=== PATIENT | female | born 1985 | race Caucasian/White ===

== ENCOUNTER 2023-09-17 03:25 | Day surgery (SDC) | payer OTHER, SELFPAY ==
--- NOTE | 2023-09-11 15:16 | PC.NURSE ---
Report to the Outpatient Waiting Room, entrance under the green pavilion located off [facility], at time _0745__ on date _09/17/23___. Planned Procedure Time: _0945___. Time changes happen often and if your time is changed the preop area will call you the afternoon before. - You and your visitor will be asked to self-screen and do not enter if you have any COVID symptoms. - A mask is optional within the hospital at this time. Patients may have clear liquids (water, carbonated beverages, clear teas, apple juice) until 3 hours prior to surgery with a maximum of 20 ounces. - No food from midnight until time of surgery - Infants may have breast milk until 4 hours before surgery, formula 6 hours prior to surgery. - Children will be allowed to drink immediately following surgery. If applicable, please bring a bottle or sippy cup to assist with drinking. Juice, water, soda, and popsicles are readily available. For infants on formula, please bring formula the day of surgery. Pacifiers are allowed. Take the following medications with a SIP of water the morning of surgery: _None DO NOT STOP ANY OF YOUR OTHER PRESCRIPTION MEDICATIONS PRIOR TO SURGERY ?EXCEPT THE FOLLOWING Medications to discontinue per physician Date to take last dose Please no make-up, nail martiniquais, hairspray, perfume, deodorant, or body powder the day of surgery. No jewelry (including any body piercings) or valuables the day of surgery, leave them at home. Please take a shower or bath the night before, or the morning of, surgery with an antibacterial soap. Wear comfortable, loose fitting clothing. Children are encouraged to wear pajamas. - Jewelry must be removed prior to entering the operating room. Rings and piercings that are not removed may be cut off. - The hospital will not accept responsibility for valuables. - Please leave all valuables, including medications, at home the day of surgery. If you are going home after surgery, a licensed fence post driver must drive you home. - NO public transportation without another adult if you receive anesthesia. - We recommend that an adult stay with you for 24 hours following discharge. - We also recommend that you do not drive, make important decision, drink alcoholic beverages, or take any drugs that were not prescribed by your health care provider for at least 24 hours after your discharge time. For Pediatric surgeries, we recommend two adults accompany the child home. Follow any additional instructions given to you from your surgeon. If you or anyone in your household have experienced Covid symptoms in the past week, please notify your surgeon or the nurse liaison at the phone number below for possible testing. Telephone instructions given to _patient__and asked if any additional questions and then verbalized understanding. Patient advised to call surgeon office or pre surgery nurse liaison [phone] if any additional questions.
[2023-09-11 15:20] VITALS: BMI 22.5
--- NOTE | 2023-09-17 07:26 | WPDHPUPDATE1 ---
History and Physical Update Update Date/Time: 09/17/23 07:26 History and Physical has been reviewed, including an updated exam of the patient. There are NO changes in the patient's condition. Risks, benefits, and alternatives have been discussed and questions answered. Patient agrees to proceed with procedure.
--- NOTE | 2023-09-17 07:26 | PM.HPGS ---
History of Present Illness History of Present Illness Consent: Risks, benefits, and alternatives have been discussed and questions answered. Patient agrees to proceed with procedure. Chief complaint: Menorrhagia Narrative: Salomón Marcos is a 38 year old female with the increasing history of for the past 2 years of heavy cycles and cramping. Pelvic ultrasound shows fibroids. It was recommended to undergo D&C hysteroscopy for further evaluation. Risks of infection, bleeding, perforation, and fluid balance are reviewed. The possibility two procedures due to large fibroids is discussed. Patient voices understanding and agrees to proceed. Review of Systems Review of Systems: not repeated day of surgery; patient states no changes in status PMF Past Medical History Medical History (Updated 09/17/23 @ 07:29 by Katherine Landry MD) Alcoholism sober since 2014 Anxiety Drug addiction clean since 2014 Interstitial cystitis Social History Social History Smoking status: Current every day smoker Tobacco type: e-cigarettes/vaping Smokeless tobacco user: other Additional smoking assessment comments: for 5 years Alcohol intake: never Substance use: former Substance use type: marijuana, crack/cocaine, amphetamines and hallucinogens Other substance usage details: daily for 10 years Last use: 2014 Living arrangements: alone Spiritual care concerns: No Meds Home Medications and Allergies Home Medications Medication Instructions Recorded Confirmed Type sertraline 50 mg tablet 75 mg PO HS 09/11/23 09/11/23 History spironolactone 100 mg tablet 100 mg PO HS 09/11/23 09/11/23 History Allergies Allergy/AdvReac Type Severity Reaction Status Date / Time No Known Allergies Allergy Unverified 09/11/23 15:00 Exam Const: General: healthy appearing and alert Orientation/consciousness: patient oriented x3 Resp: Effort & Inspection: normal respiratory effort Auscultation: clear to auscultation bilaterally Cardio: Rate: regular rate Rhythm: regular rhythm GI: GI Palp: Yes Soft to palpation, No Tenderness to palpation present (GI) and No Palpable mass present : Bimanual exam- vagina & uterus: enlarged ( 10.6cm with several fibroids measuring between 1cm and 3.5cm) Neuro: General: patient oriented x3 Assessment and Plan Assessment and plan (1) Menorrhagia: Code(s): N92.0 - Excessive and frequent menstruation with regular cycle Status: Acute Assessment and Plan: plan to proceed with D&C hysteroscopy
[2023-09-17] MEDS: LACTATED RINGERS 1,000 ML 30 ML IV CONT (08:00)
[2023-09-17 08:15] VITALS: BP 102/66; PULSE 92; RESP 14; TEMP 36.3; O2SAT 100
--- NOTE | 2023-09-17 08:18 | P.PNAN_ITS ---
Anes - Initial Pre Proc Eval Procedure: Operation Date: 09/17/23 09:45 Proposed Procedures p Hysteroscopy Dilation and Curettage - Katherine Landry MD Date/Time: 09/17/23 08:18 Surgeon: Katherine Landry MD Pre Op Diagnosis: Menorrhagia Patient Data Age: 38 Gender: F Height: 1.68 m Weight: 63.3 kg Allergies Allergy/AdvReac Type Severity Reaction Status Date / Time No Known Allergies Allergy Unverified 09/11/23 15:00 Home Medications Medication Instructions Recorded Confirmed Type sertraline 50 mg tablet 75 mg PO HS 09/11/23 09/11/23 History spironolactone 100 mg tablet 100 mg PO HS 09/11/23 09/11/23 History Patient hx anesthesia problems: none Family hx anesthesia problems: none Results Review: All pre-operative results and documents have been reviewed as part of the pre- operative evaluation. [facility] Past Medical History Medical History Alcoholism sober since 2014 Anxiety Drug addiction clean since 2014 Interstitial cystitis Social History Social History Smoking status: Current every day smoker Tobacco type: e-cigarettes/vaping Smokeless tobacco user: other Additional smoking assessment comments: for 5 years Alcohol intake: never Substance use: former Substance use type: marijuana, crack/cocaine, amphetamines and hallucinogens Other substance usage details: daily for 10 years Last use: 2014 Living arrangements: alone Spiritual care concerns: No Anes - Eval Final PreProcedure Day of Procedure 09/17/23 08:18 Patient weight: normal Heart: regular rate and rhythm Lungs: clear to auscultation Airway: Mallampati scale class II Neurological: alert and oriented Last oral intake: >/= 8 hours ASA classification: II Emergent: no Anesthetic plan: proceed Anesthesia type and monitoring: general GIVS and standard monitoring Results Review: All pre-operative results and documents have been reviewed as part of the pre- operative evaluation. Ex smoker, quit 2016. Active w yoga, pilates, wts, no cp or sob. Informed Consent: The patient's anesthetic plan and its attendant risks and benefits were discussed with the patient/family/POA. Questions were solicited and answers provided to the satisfaction of the patient/family/POA.
[2023-09-17] MEDS: ACETAMINOPHEN 500 MG TABLET 1000 MG PO (08:31)
[2023-09-17 08:38] LABS: BEDSIDEPREGUCG Negative
[2023-09-17] MEDS: KETOROLAC 15 MG/ML VIAL (*BKC) IV PUSH (09:25)
--- NOTE | 2023-09-17 09:30 | W.PM.PROC2 ---
Procedure Note - Detailed Date of Procedure 09/17/23 Pre-op Diagnosis Menorrhagia; Fibroids Post-op Diagnosis Same Procedure Performed hysteroscopic myomectomy with D&C Surgeon Katherine Landry MD Anesthesia MAC Findings uterus sounds to 8cm; there is a fibroid filling over half the cavity arising from the right posterior wall the remainder of the endometrium appears grossly Description of Procedure The patient is taken to the operating room and placed under anesthesia in the dorsal lithotomy position. She was prepped and draped in the usual sterile fashion. The bivalve speculum was placed in the vagina and the cervix grasped on the anterior lip with a tenaculum. The uterus is sounded 8cm. The cervix was serially dilated to a 7 Hegar. The large Aveta hysteroscope was placed and with the above-stated findings the Wave Aveta resection device is placed. Under direct visualization the fibroid is removed in its entirety. The hysteroscope was then removed and OO sharp curette used to curette the endometrium until a good uterine cry was noted in all areas. Instruments were then removed. Sponge, needle, and instrument counts are correct per the OR staff. The patient was awakened from anesthesia and taken to recovery in stable condition. Estimated Blood Loss 5 Drains No Packing No Pathology Yes ( Endometrial shavings and curettings) Complications No immediate complications Condition Stable Disposition PACU
[2023-09-17 09:32] VITALS: BP 123/85; PULSE 88; O2SAT 100
[2023-09-17 10:02] VITALS: BP 114/74; PULSE 62
[2023-09-17 10:32] VITALS: BP 113/80; PULSE 64
[2023-09-17] MEDS: oxyCODONE HCL (*CRX) 5 MG TAB IR PO (10:53)
[2023-09-17 11:02] VITALS: BP 108/73; PULSE 76
== END 2023-09-17 11:22 | disposition home or self-care (01) ==
PROVIDERS: PCP Nurse Practitioner Family; Visit Provider Obstetrics & Gynecology Gynecology
PROC: 0U5B8ZZ Destruction of Endometrium, Via Natural or Artificial Opening Endoscopic (ICD-10-PCS; CPT 58563; principal; 2023-09-17 09:45)
DX: D25.9 Leiomyoma of uterus, unspecified (principal); F41.9 Anxiety disorder, unspecified; F17.290 Nicotine dependence, other tobacco product, uncomplicated; F12.90 Cannabis use, unspecified, uncomplicated; F14.90 Cocaine use, unspecified, uncomplicated
CPT/HCPCS: 58561; 88305; A9270; J1885; J2250; J2704; J3010; J7120